=== PATIENT | female | born 1955 | race Caucasian/White ===

== ENCOUNTER 2018-04-02 08:56 | Emergency (ER) | payer OTHER ==
--- NOTE | 2018-04-02 11:18 | RAD REPORT ---
EXAM DESCRIPTION: Bishop Rueda (2 Views)04/02/2018 10:50 am CLINICAL HISTORY: Cough COMPARISON: None FINDINGS: The lungs appear clear of acute infiltrate. The heart is normal size IMPRESSION: No acute abnormalities displayed
[2018-04-02 11:55] LABS: Albumin 3.3 g/dL (3.4-5.0); Bilirubin Total 0.9 mg/dL (0.2-1.0); Potassium 4.8 mmol/L (3.5-5.1); Protein, Total 8.3 g/dL (6.4-8.2)
[2018-04-02 12:01] LABS: Absolute Lymphocytes (CBC) 1.5 K/uL (0.7-4.9); Absolute Neutrophil 11.2 K/uL (1.8-8.0); Basophils % 0.4 % (0-1.3); Hematocrit 40.6 % (36.0-45.0); Lymphocytes % 10.6 % (15.3-44.8); MCH 29.2 pg (27.0-35.0); MCV 88.5 fL (80-100); MPV 10.4 fL (7.6-11.3); Monocytes % 7.3 % (3.3-12.3); RBC Red Blood Cell Count 4.59 M/uL (3.86-4.86)
[2018-04-02] MEDS ORDERED: INSULIN -REGULAR HUMAN 50 UNIT/0.5 ML ML ONE (12:49)
[2018-04-02] MEDS ORDERED: ONDANSETRON 4 MG/2 ML VIAL ONE (13:02)
[2018-04-02 15:11] LABS: Urine Blood TRACE (NEG); Urine Glucose NEGATIVE (NEG); Urine Protein NEGATIVE (NEG); Urine Specific Gravity 1.015 (1.005-1.030)
--- NOTE | 2018-04-02 15:52 | EDPHYS ---
Physician Documentation [facility] Name: Regi Pitts Age: 62 yrs Sex: Female : 1955 Arrival Date: 04/02/2018 Time: 09:02 Bed 15 Private MD: ED Physician Artemio Lawson HPI: 04/02 10:35 This 62 yrs old Female presents to ER via Ambulatory with complaints of [facility] Cough, Congestion. 10:35 The patient or guardian reports cough. Onset: The symptoms/episode began/occurred jmm gradually, 1 week(s) ago. Associated signs and symptoms: Pertinent positives: fever, nausea. This is a 62 year old female with a history of DM, HTN, HLP that presents to the ED with sinus pain, cough for the past week. Patient also complains of nausea. Denies vomiting or abdominal pain. Historical: - Allergies: 09:15 Claritin (Rash); hb - PMHx: 09:15 Diabetes - NIDDM; Hypertension; hb - PSHx: 09:15 Femur - right; hb - Immunization history:: Adult Immunizations up to date. - Social history:: Smoking status: Patient/guardian denies using tobacco. - Ebola Screening: : No symptoms or risks identified at this time. ROS: 10:35 Eyes: Negative for injury, pain, redness, and discharge. jmm 10:35 Cardiovascular: Negative for chest pain, palpitations, and edema. 10:35 Abdomen/GI: Negative for abdominal pain, nausea, vomiting, diarrhea, and constipation. 10:35 Constitutional: Positive for body aches, fever. 10:35 ENT: Positive for sinus pain. 10:35 Respiratory: Positive for cough. 10:35 Abdomen/GI: Positive for nausea. 10:35 All other systems are negative. Exam: 10:35 Eyes: EOMI, no conjunctival erythema appreciated Neck: Trachea midline, Supple [facility] Chest/axilla: Normal chest wall appearance and motion. 10:35 Constitutional: The patient appears in no acute distress, alert, awake. 10:35 Head/face: Sinus tenderness, that is moderate. 10:35 Cardiovascular: Rate: normal, Rhythm: regular. 10:35 Respiratory: the patient does not display signs of respiratory distress, Respirations: normal, Breath sounds: are clear throughout. 10:35 Abdomen/GI: Inspection: abdomen appears normal, Bowel sounds: normal, Palpation: abdomen is soft and non-tender, in all quadrants. 10:35 Back: ROM is normal. 10:35 Musculoskeletal/extremity: ROM: intact in all extremities. 10:35 Skin: Appearance: Color: normal in color. 10:35 Neuro: Orientation: is normal, Mentation: is normal, Memory: is normal. 10:35 Psych: Behavior/mood is pleasant, cooperative. Vital Signs: 09:14 BP 139 / 69; Pulse 96; Resp 16; Temp 99; Pulse Ox 100% on R/A; Pain 0/10; hb 10:25 BP 105 / 59; Pulse 99; Resp 20; Pulse Ox 97% on R/A; aj1 11:40 BP 110 / 52; Pulse 95; Resp 18; Pulse Ox 100% on R/A; em 12:34 BP 103 / 59; Pulse 130; Resp 22; Pulse Ox 99% on R/A; aj1 13:00 BP 116 / 63; Pulse 125; Resp 20; Pulse Ox 99% on R/A; aj1 13:30 BP 112 / 45; Pulse 123; Resp 18; Pulse Ox 100% on R/A; aj1 14:30 BP 109 / 69; Pulse 117; Resp 18; Pulse Ox 96% on R/A; aj1 15:05 BP 115 / 65; Pulse 113; Resp 20; Pulse Ox 95% on R/A; aj1 15:25 BP 110 / 72; Pulse 116; Resp 20; Pulse Ox 95% on R/A; aj1 MDM: 10:25 Patient medically screened. [facility] 10:44 Differential Diagnosis: Bronchitis Influenza Upper Respiratory Infection Sinusitis [facility] Pneumonia. Data reviewed: vital signs, nurses notes. 19:19 Counseling: I had a detailed discussion with the patient and/or guardian regarding: the [facility] historical points, exam findings, and any diagnostic results supporting the discharge/admit diagnosis, lab results, radiology results, the need for outpatient follow up, to return to the emergency department if symptoms worsen or persist or if there are any questions or concerns that arise at home. ED course: The patient's HR increased after administration of duoneb. The patient denied shortness of breath or chest pain. The patient was observed in the ED with the patient stating she felt much better and is able to tolerate PO. Symptoms otherwise appear consistent with sinusitis. Patient's blood glucose lower in the ED and advised to resume home medication. Patient was advised to follow up with PCP and given strict return precautions. The patient understood and agrees with the plan of care. . 04/02 10:35 Order name: Influenza Screen (a \T\ B); Complete Time: 11:28 jmm 04/02 10:44 Order name: CBC with Diff; Complete Time: 12:04 jmm 04/02 10:44 Order name: CMP; Complete Time: 12:00 jmm 04/02 14:02 Order name: Urine Dipstick--Ancillary (enter results); Complete Time: 15:13 eb 04/02 16:10 Order name: Glucose, Ancillary Testing; Complete Time: 16:11 EDMS 04/02 16:10 Order name: Glucose, Ancillary Testing; Complete Time: 16:11 EDMS 04/02 10:35 Order name: Chest Pa And Lat (2 Views) XRAY; Complete Time: 11:23 jmm 04/02 10:35 Order name: Finger Stick; Complete Time: 10:44 jmm 04/02 10:44 Order name: Saline Lock; Complete Time: 11:08 m 04/02 13:03 Order name: Finger Stick; Complete Time: 13:23 jmm Administered Medications: 11:39 Drug: NS 0.9% 1000 ml Route: IV; Rate: 1000 ml; Site: right antecubital; em 11:39 Drug: DuoNeb (3:1) (2.5 mg - 0.5 mg) 3 ml Route: Nebulizer; em 12:59 Drug: Insulin Regular Human 5 units {Co-Signature: la1 (José Miguel Hollis RN).} Route: Sub-Q; hb Site: right upper arm; 13:00 Drug: Zofran 4 mg Route: IVP; Site: right antecubital; hb 16:00 Drug: Rocephin - (cefTRIAXone) 1 grams Route: IVPB; Infused Over: 30 mins; Site: right hb forearm; Point of Care Testing: Blood Glucose: 10:44 Blood Glucose: 404 mg/dL; aj1 11:58 Blood Glucose: 197 mg/dL; aj1 13:13 Blood Glucose: 197 mg/dL; aj1 Ranges: Critical Glucose Levels:Adult <50 mg/dl or >400 mg/dl <40 mg/dl or >180 mg/dl Disposition: 18:50 Co-signature as Attending Physician, Artemio Lawson MD. rn Disposition: 04/02/18 15:51 Discharged to Home. Impression: Acute frontal sinusitis, Acute ethmoidal sinusitis. - Condition is Stable. - Discharge Instructions: Sinusitis, Adult. - Prescriptions for cefdinir 300 mg Oral capsule - take 1 capsule by ORAL route every 12 hours for 10 days; 20 tablet. Zofran ODT 4 mg Oral tablet,disintegrating - place 1 tablet by TRANSLINGUAL route every 4-6 hours; 20 tablet. - Medication Reconciliation Form, Thank You Letter, Antibiotic Education, Prescription Opioid Use form. - Follow up: Private Physician; When: 2 - 3 days; Reason: Recheck today's complaints, Continuance of care, Re-evaluation by your physician. Signatures: Dispatcher [employer] EDHaroldo Hylton PA PA jmm Munoz, Edgar, WELL SERVICE DERRICK WORKER WELL SERVICE DERRICK WORKER Artemio Lu MD MD rn Baxter, Heather, RN RN hb Lee Attema RN la1 Corrections: (The following items were deleted from the chart) 16:13 15:51 04/02/2018 15:51 Discharged to Home. Impression: Acute frontal sinusitis; Acute hb ethmoidal sinusitis. Condition is Stable. Forms are Medication Reconciliation Form, Thank You Letter, Antibiotic Education, Prescription Opioid Use. Follow up: Private Physician; When: 2 - 3 days; Reason: Recheck today's complaints, Continuance of care, Re-evaluation by your physician. herny
--- NOTE | 2018-04-02 15:52 | ER ---
Nurse's Notes [facility] Name: Regi Pitts Age: 62 yrs Sex: Female : 1955 Arrival Date: 04/02/2018 Time: 09:02 Bed 15 Private MD: Diagnosis: Acute frontal sinusitis;Acute ethmoidal sinusitis Presentation: 04/02 09:12 Presenting complaint: Patient states: Sinus pain and pressure x 1 week, productive hb cough with yellow sputum x 2 days, N/V since last night. Unable to tolerate liquids/medications. TMAX 101. Transition of care: patient was not received from another setting of care. Onset of symptoms was March 27, 2018. Risk Assessment: Do you want to hurt yourself or someone else? Patient reports no desire to harm self or others. Care prior to arrival: None. 09:12 Method Of Arrival: Ambulatory hb 09:12 Acuity: BERNARDO 3 hb 10:35 Initial Sepsis Screen: Does the patient meet any 2 criteria? HR > 90 bpm. No. Patient's aj1 initial sepsis screen is negative. Does the patient have a suspected source of infection? Yes: Productive cough/pneumonia. Historical: - Allergies: 09:15 Claritin (Rash); hb - PMHx: 09:15 Diabetes - NIDDM; Hypertension; hb - PSHx: 09:15 Femur - right; hb - Immunization history:: Adult Immunizations up to date. - Social history:: Smoking status: Patient/guardian denies using tobacco. - Ebola Screening: : No symptoms or risks identified at this time. Screenin:25 Abuse screen: Denies threats or abuse. Denies injuries from another. Nutritional aj1 screening: No deficits noted. Tuberculosis screening: No symptoms or risk factors identified. Assessment: 10:25 General: Appears in no apparent distress. uncomfortable, Behavior is calm, cooperative. aj1 Pain: Complains of pain in chest Pain does not radiate. Pain currently is 5 out of 10 on a pain scale. Quality of pain is described as aching, Is intermittent, Alleviated by coughing. Neuro: Level of Consciousness is awake, alert, obeys commands. Cardiovascular: Reports chest pain, Heart tones S1 S2 S4 Patient's skin is warm and dry. Rhythm is regular Chest pain is described as Pain is 5 out of 10 on a pain scale. quality is aching episodes are intermittent is aggravated by coughing. Respiratory: Reports cough that is productive, hacking, persistent Airway is patent Respiratory effort is even, unlabored, Respiratory pattern is regular, symmetrical, Breath sounds are clear bilaterally. GI: Abdomen is non-distended, Bowel sounds present X 4 quads. Abd is soft and non tender X 4 quads. Reports diarrhea, nausea, vomiting. : No signs and/or symptoms were reported regarding the genitourinary system. Derm: Skin is pink, warm \T\ dry. normal. Musculoskeletal: Circulation, motion, and sensation intact. 10:45 Reassessment: Patient transported to X-Ray via wheelchair. aj1 11:39 Reassessment: Patient appears in no apparent distress at this time. No changes from em previously documented assessment. Patient and/or family updated on plan of care and expected duration. Pain level reassessed. Patient is alert, oriented x 3, equal unlabored respirations, skin warm/dry/pink. 12:34 Reassessment: Patient and/or family updated on plan of care and expected duration. Pain aj1 level reassessed. Patient c/o palpitations. Denies chest pain or shortness of breath. Heart rate is 130. Notified TERENCE Heaton. EKG obtained, will continue to monitor patient. Neuro: Level of Consciousness is awake, alert, obeys commands. Cardiovascular: Heart tones S1 S2 present Patient's skin is warm and dry. Rhythm is sinus tachycardia Chest pain is denied. Respiratory: Airway is patent Respiratory effort is even, unlabored, Respiratory pattern is regular, symmetrical, Breath sounds are clear bilaterally. Derm: Skin is pink, warm \T\ dry. normal. Musculoskeletal: Circulation, motion, and sensation intact. 12:40 Reassessment: TERENCE Heaton at bedside. aj1 13:30 Reassessment: Patient appears in no apparent distress at this time. No changes from aj1 previously documented assessment. Patient and/or family updated on plan of care and expected duration. Pain level reassessed. Patient is alert, oriented x 3, equal unlabored respirations, skin warm/dry/pink. Patient states that she is feeling better, she is no longer having palpitations. 14:30 Reassessment: Patient appears in no apparent distress at this time. No changes from aj1 previously documented assessment. Patient and/or family updated on plan of care and expected duration. Pain level reassessed. Patient is alert, oriented x 3, equal unlabored respirations, skin warm/dry/pink. 15:24 Reassessment: Patient appears in no apparent distress at this time. No changes from aj1 previously documented assessment. Patient and/or family updated on plan of care and expected duration. Pain level reassessed. Patient is alert, oriented x 3, equal unlabored respirations, skin warm/dry/pink. Vital Signs: 09:14 BP 139 / 69; Pulse 96; Resp 16; Temp 99; Pulse Ox 100% on R/A; Pain 0/10; hb 10:25 BP 105 / 59; Pulse 99; Resp 20; Pulse Ox 97% on R/A; aj1 11:40 BP 110 / 52; Pulse 95; Resp 18; Pulse Ox 100% on R/A; em 12:34 BP 103 / 59; Pulse 130; Resp 22; Pulse Ox 99% on R/A; aj1 13:00 BP 116 / 63; Pulse 125; Resp 20; Pulse Ox 99% on R/A; aj1 13:30 BP 112 / 45; Pulse 123; Resp 18; Pulse Ox 100% on R/A; aj1 14:30 BP 109 / 69; Pulse 117; Resp 18; Pulse Ox 96% on R/A; aj1 15:05 BP 115 / 65; Pulse 113; Resp 20; Pulse Ox 95% on R/A; aj1 15:25 BP 110 / 72; Pulse 116; Resp 20; Pulse Ox 95% on R/A; aj1 ED Course: 09:02 Patient arrived in ED. as 09:14 Triage completed. hb 09:15 Arm band placed on left wrist. hb 10:16 Haroldo Clay PA is PHCP. jmm 10:16 Artemio Lawson MD is Attending Physician. jmm 10:18 Ami Travis, CAROLINE is Primary Nurse. aj1 10:25 Patient has correct armband on for positive identification. Bed in low position. Call aj1 light in reach. Side rails up X 1. 10:25 No provider procedures requiring assistance completed. aj1 10:44 Notified Nurse Practitioner and/or Physician Picture Copyist of patient's blood sugar 404. aj1 10:44 Flu and/or RSV swab sent to lab. aj1 10:49 X-ray completed. Portable x-ray completed in exam room. Patient tolerated procedure sw well. 10:50 Chest Pa And Lat (2 Views) XRAY In Process Unspecified. EDMS 11:07 Initial lab(s) drawn, by me, sent to lab. Inserted saline lock: 22 gauge in right dh3 forearm, using aseptic technique. Blood collected. 12:18 CT completed. Patient moved to CT via stretcher. Patient moved back from CT. cw1 12:38 EKG done, by ED staff, reviewed by Haroldo PRATT. [facility] 16:12 IV discontinued, intact, bleeding controlled, No redness/swelling at site. Pressure hb dressing applied. Administered Medications: 11:39 Drug: NS 0.9% 1000 ml Route: IV; Rate: 1000 ml; Site: right antecubital; em 11:39 Drug: DuoNeb (3:1) (2.5 mg - 0.5 mg) 3 ml Route: Nebulizer; em 12:59 Drug: Insulin Regular Human 5 units {Co-Signature: eunice (José Miguel Hollis RN).} Route: Sub-Q; hb Site: right upper arm; 13:00 Drug: Zofran 4 mg Route: IVP; Site: right antecubital; hb 16:00 Drug: Rocephin - (cefTRIAXone) 1 grams Route: IVPB; Infused Over: 30 mins; Site: right hb forearm; Point of Care Testing: Blood Glucose: 10:44 Blood Glucose: 404 mg/dL; aj1 11:58 Blood Glucose: 197 mg/dL; aj1 13:13 Blood Glucose: 197 mg/dL; aj1 Ranges: Outcome: 15:51 Discharge ordered by . [facility] 16:11 Discharged to home ambulatory. hb 16:11 Condition: stable 16:11 Discharge instructions given to patient, Instructed on discharge instructions, follow up and referral plans. medication usage, Demonstrated understanding of instructions, follow-up care, medications, Prescriptions given X 2. 16:13 Patient left the ED. hb Signatures: Dispatcher [employer] EDMS Ami Travis RN RN aj1 Mickail, Joel, PA PA Sen Gallego, NETWORK SYSTEMS INTEGRATOR NETWORK SYSTEMS INTEGRATOR Melissa Mukherjee Crystal cw1 Elda Lamas Heather, RN RN [facility] José Miguel Attema RN la1
[2018-04-02] MEDS ORDERED: CEFTRIAXONE/SWI 1gm 1 GM/10 ML SYR ONE (15:58)
--- NOTE | 2018-04-04 07:31 | EKG ---
Test Date: 2018-04-02 Test Time: 12:34:40 Installation Drafter: JOAQUIM MEASUREMENT RESULTS: Intervals: Rate: 130 WV: 154 QRSD: 74 QT: 302 QTc: 444 [place]: P: 41 WV: 154 QRS: 33 T: 56 INTERPRETIVE STATEMENTS: Sinus tachycardia Cannot rule out Anterior infarct, age undetermined Abnormal ECG Compared to ECG 03/29/2010 17:34:21 Possible myocardial infarct finding now present Sinus rhythm no longer present Electronically Signed On 04-04-18 07:31:18 CDT by Josh Haq
== END 2018-04-02 16:13 | disposition home or self-care (01) ==
LOC: ER 08:56
DX: J01.10 Acute frontal sinusitis, unspecified (principal); J01.20 Acute ethmoidal sinusitis, unspecified
CPT/HCPCS: 36415; 71046; 80053; 81003; 82962; 85025; 87804; 93005; 94640; 96372; 99285; J0696; J2405

== ENCOUNTER 2021-02-28 07:33 | Day surgery (SDC) | payer OTHER ==
[2021-02-28] MEDS ORDERED: Zoledronic Acid/Mannitol/Water 5 MG/100 ML INFUS.BOT IV ONE (07:45)
[2021-02-28 08:14] VITALS: BP 150/61; TEMP 98.4; O2SAT 99; BMI 37.8
== END 2021-02-28 08:40 | disposition home or self-care (01) ==
LOC: DS 07:33
PROVIDERS: ATTEND Internal Medicine
DX: M81.0 Age-related osteoporosis without current pathological fracture (principal); R13.10 Dysphagia, unspecified
CPT/HCPCS: 96365; J3489

== ENCOUNTER 2022-01-20 11:48 | Emergency (ER) | payer OTHER ==
--- OUTSIDE RECORDS SUMMARY | 2022-01-20 11:51 | XMS REPORT | Continuity of Care Document ---
:1955 Author Organization [facility] t Address [address] [place] [address] Care Team Providers Name Role Phone PCP, DOES NOT HAVE A Primary Care Physician Unavailable Carol COOK Attending Clinician Unavailable Payers Payer Name Policy Type Policy Number Effective Date Expiration Date S marilyn [employer] O [id number] 2018 00:00:00 2020 00:00 :00 Problems This patient has no known problems. Allergies, Adverse Reactions, Alerts Allergy Allergy Status Severity Reaction(s) Onset Inactive Treating Comm ents Source Name Type Date Date Clinician NO KNOWN Drug [facility]ations This patient has no known medications. Procedures This patient has no known procedures. Encounters Start End Encounter Admission Attending Care Care Encounter Source Date/Time Date/Time Type Type Clinicians Facility Department ID 2019-07-10 2019-07-10 Outpatient Laura COOK [facility] [id number] [employer] 14:06:13 14:17:[address] [facility] Results This patient has no known results.
[2022-01-20 13:53] LABS: Absolute Lymphocytes (CBC) 2.2 K/uL (0.7-4.9); Hematocrit 41.9 % (36.0-45.0); Lymphocytes % 27.9 % (15.3-44.8); MCV 87.6 fL (80-100); MPV 7.4 fL (7.6-11.3); RBC Red Blood Cell Count 4.78 M/uL (3.86-4.86)
[2022-01-20] MEDS ORDERED: ONDANSETRON 4 MG/2 ML VIAL ONE (13:59)
[2022-01-20] MEDS ORDERED: NA CHLORIDE 0.9% 1,000 ML ONE (13:59)
[2022-01-20 14:09] LABS: Albumin 3.9 g/dL (3.4-5.0); Bilirubin Total 0.6 mg/dL (0.2-1.0); Potassium 4.7 mmol/L (3.5-5.1); Protein, Total 7.8 g/dL (6.4-8.2)
--- NOTE | 2022-01-20 14:35 | ER ---
Nurse's Notes [facility] Name: Regi Pitts Age: 66 yrs Sex: Female : 1955 Arrival Date: 01/20/2022 Time: 12:12 Bed DIS2 Private MD: Diagnosis: Vomiting;Diarrhea, unspecified Presentation: 01/20 12:33 Chief complaint: Body aches, headache, and N/V x 4 days, diarrhea today. Denies fever. hb Tolerating occasional small sips of water, not tolerating food/medication. Coronavirus screen: Client presents with at least one sign or symptom that may indicate coronavirus-19. Standard/surgical mask placed on the client. Provider contacted for isolation considerations. Ebola Screen: No symptoms or risks identified at this time. 12:33 Method Of Arrival: Ambulatory hb 12:36 Initial Sepsis Screen: Does the patient meet any 2 criteria? No. Patient's initial hb sepsis screen is negative. Does the patient have a suspected source of infection? No. Patient's initial sepsis screen is negative. Risk Assessment: Do you want to hurt yourself or someone else? Patient reports no desire to harm self or others. Onset of symptoms was January 16, 2022. 12:36 Acuity: BERNARDO 3 hb Historical: - Allergies: 12:36 Claritin (rash); hb - Home Meds: 12:36 gabapentin oral [Active]; metoprolol succinate oral [Active]; Lisinopril Oral [Active]; hb atorvastatin oral [Active]; fenoprofen oral [Active]; pantoprazole oral [Active]; Basaglar KwikPen U-100 Insulin 100 unit/mL (3 mL) subcutaneous inpn [Active]; - PMHx: 12:36 Diabetes - NIDDM; Hypertension; hb - PSHx: 12:36 Bariatric; hb - Immunization history:: Client reports receiving the 2nd dose of the Covid vaccine. - Social history:: Smoking status: Patient denies any tobacco usage or history of. Vital Signs: 12:33 BP 131 / 75; Pulse 73; Resp 16; Temp 98.5(TE); Pulse Ox 100% on R/A; Weight 104.33 kg; hb Height 5 ft. 3 in. (160.02 cm); Pain 5/10; 12:33 Body Mass Index 40.74 (104.33 kg, 160.02 cm) hb ED Course: 12:12 Patient arrived in ED. mr 12:36 Triage completed. hb 12:36 Arm band placed on. hb 13:27 COVID-19 SARS RT PCR (Document "Date of Onset" if Symptomatic) Sent. kj1 13:27 Flu Sent. kj1 13:29 Shaka Thurman NP is PHCP. pm1 13:29 Kal Cortez MD is Attending Physician. pm1 13:46 Italo Garcia, RN is Primary Nurse. jl7 Administered Medications: 14:01 Drug: NS 0.9% 1000 ml Route: IV; Rate: 1 bolus; Site: left antecubital; jl7 14:01 Drug: Zofran (Ondansetron) 4 mg Route: IVP; Site: left antecubital; jl7 Outcome: 14:34 Discharge ordered by . pm1 15:16 Patient left the ED. hb Signatures: Amanda Ramos mr Shaka Thurman, MARGOT KIER OPERATOR pm1 Rossana Sorenson RN RN Italo Garcia, CAROLINE RN jl7 Raquel Guo kj1
--- NOTE | 2022-01-20 14:35 | EDPHYS ---
[facility] Age: 66 yrs Sex: Female : 1955
[2022-01-20 14:51] LABS: Urine Blood Trace-lysed (Negative); Urine Glucose Negative (Negative); Urine Protein Negative (Negative); Urine pH 5.5 (5.0-7.0)
[2022-01-20 15:44] VITALS: BP 131/75; TEMP 98.5; O2SAT 100
== END 2022-01-20 15:16 | disposition home or self-care (01) ==
LOC: ER 11:48
DX: R11.2 Nausea with vomiting, unspecified (principal); R19.7 Diarrhea, unspecified; Z20.822 Contact with and (suspected) exposure to COVID-19; E11.9 Type 2 diabetes mellitus without complications; I10 Essential (primary) hypertension; Z79.4 Long term (current) use of insulin; Z88.8 Allergy status to other drugs, medicaments and biological substances
CPT/HCPCS: 85025; 36415; 82947; 81003; 83690; 80053; 87804 ×2; 96374; 99283; U0003; J7030; J2405

== ENCOUNTER 2022-05-10 10:31 | Emergency (ER) | payer OTHER ==
--- OUTSIDE RECORDS SUMMARY | 2022-05-10 10:33 | XMS REPORT | Continuity of Care Document ---
:1955 Author Organization [facility] t Address [address] [place] [address] Care Team Providers Name Role Phone PCP, PATIENT DOES NOT HAVE A Primary Care Physician Unavaila VIDYA Kimball Attending Clinician Unavailable Payers Payer Name Policy Type Policy Number Effective Date Expiration Date S marilyn SAENZTNA O [id number] 2018 00:00:00 2020 00:00 :00 Problems This patient has no known problems. Allergies, Adverse Reactions, Alerts Allergy Allergy Status Severity Reaction(s) Onset Inactive Treating Comm ents Source Name Type Date Date Clinician NO KNOWN Drug Active [facility] ALLERGIE Class [facility] Medications This patient has no known medications. Procedures This patient has no known procedures. Encounters Start End Encounter Admission Attending Care Care Encounter Source Date/Time Date/Time Type Type Clinicians Facility Department ID 2019-07-10 2019-07-10 Outpatient Laura COOK [facility] [id number] [place] 14:06:13 14:17:00 VIDYA compa [facility] Results This patient has no known results.
[2022-05-10 11:53] LABS: SARS-COV-2 RT PCR NEGATIVE (NEGATIVE)
[2022-05-10 12:23] LABS: Urine Blood Trace-intact (Negative); Urine Glucose Negative (Negative); Urine Protein 1+ (Negative); Urine pH 5.5 (5.0-7.0)
--- NOTE | 2022-05-10 12:32 | RAD REPORT ---
EXAM DESCRIPTION: RAD - Chest Single View - 05/10/2022 12:16 pm CLINICAL HISTORY: COUGH COMPARISON: Chest Pa And Lat (2 Views) dated 04/02/2018 FINDINGS: Lines: None. Lungs: No evidence of edema or pneumonia. Pleural: No significant pleural effusions or pneumothorax. Cardiac: The heart size is within normal limits. Mediastinum: Within normal limits. Bones: No acute fractures. Other: None IMPRESSION: No acute cardiopulmonary disease.
[2022-05-10 12:37] LABS: Absolute Lymphocytes (CBC) 1.6 K/uL (0.7-4.9); Hematocrit 35.2 % (36.0-45.0); MCV 87.7 fL (80-100); MPV 7.8 fL (7.6-11.3); RBC Red Blood Cell Count 4.01 M/uL (3.86-4.86)
[2022-05-10 12:57] LABS: Albumin 2.7 g/dL (3.4-5.0); Bilirubin Total 0.5 mg/dL (0.2-1.0); Potassium 4.7 mmol/L (3.5-5.1); Protein, Total 7.6 g/dL (6.4-8.2); Troponin High Sensitivity 6.6 pg/mL (<58.9)
--- NOTE | 2022-05-10 13:20 | EDPHYS ---
Physician Documentation [facility] Name: Regi Pitts Age: 66 yrs Sex: Female : 1955 Arrival Date: 05/10/2022 Time: 10:33 Bed 20 Private MD: Wagner Justin V ED Physician Kal Cortez HPI: 05/10 13:16 This 66 yrs old Female presents to ER via Ambulatory with complaints of jl9 Cough, Decreased Appetite, and malaise. . 13:16 The patient or guardian reports cough. Onset: The symptoms/episode began/occurred jl9 yesterday. Modifying factors: The symptoms are alleviated by nothing, the symptoms are aggravated by nothing. Associated signs and symptoms: Pertinent positives:. Historical: - Allergies: 10:59 Claritin (rash); vg1 - Home Meds: 10:59 pantoprazole Oral [Active]; metoprolol succinate Oral [Active]; lisinopril Oral vg1 [Active]; gabapentin Oral [Active]; atorvastatin Oral [Active]; Basaglar KwikPen U-100 Insulin 100 unit/mL (3 mL) subcutaneous inpn [Active]; fenofibrate oral [Active]; Insulin: Regular Sub-Q [Active]; - PMHx: 10:59 Diabetes - NIDDM; Hypertension; vg1 - Immunization history:: Client reports receiving the 2nd dose of the Covid vaccine. - Social history:: Smoking status: Patient denies any tobacco usage or history of. ROS: 13:17 Constitutional: Negative for fever, chills, and weight loss, Eyes: Negative for injury, jl9 pain, redness, and discharge, ENT: Negative for injury, pain, and discharge, Neck: Negative for injury, pain, and swelling, Cardiovascular: Negative for chest pain, palpitations, and edema. 13:17 Abdomen/GI: Negative for abdominal pain, nausea, vomiting, diarrhea, and constipation, Back: Negative for injury and pain, : Negative for injury, bleeding, discharge, and swelling, MS/Extremity: Negative for injury and deformity, Skin: Negative for injury, rash, and discoloration. 13:17 Psych: Negative for depression, anxiety, suicide ideation, homicidal ideation, and hallucinations, Allergy/Immunology: Negative for hives, rash, and allergies, Endocrine: Negative for neck swelling, polydipsia, polyuria, polyphagia, and marked weight changes, Hematologic/Lymphatic: Negative for swollen nodes, abnormal bleeding, and unusual bruising. 13:17 Respiratory: Positive for cough. 13:17 Neuro: Positive for weakness. Exam: 13:17 Constitutional: This is a well developed, well nourished patient who is awake, alert, jl9 and in no acute distress. Head/Face: Normocephalic, atraumatic. Eyes: Pupils equal round and reactive to light, extra-ocular motions intact. Lids and lashes normal. Conjunctiva and sclera are non-icteric and not injected. Cornea within normal limits. Periorbital areas with no swelling, redness, or edema. ENT: Mucous membranes moist. Neck: Trachea midline, no thyromegaly or masses palpated, and no cervical lymphadenopathy. Supple, full range of motion without nuchal rigidity, or vertebral point tenderness. No Meningismus. Chest/axilla: Normal chest wall appearance and motion. Nontender with no deformity. No lesions are appreciated. Cardiovascular: Regular rate and rhythm with a normal S1 and S2. No gallops, murmurs, or rubs. Normal PMI, no JVD. No pulse deficits. Respiratory: Lungs have equal breath sounds bilaterally, clear to auscultation and percussion. No rales, rhonchi or wheezes noted. No increased work of breathing, no retractions or nasal flaring. Abdomen/GI: Soft, non-tender, with normal bowel sounds. No distension or tympany. No guarding or rebound. No evidence of tenderness throughout. Back: No spinal tenderness. No costovertebral tenderness. Full range of motion. Skin: Warm, dry with normal turgor. Normal color with no rashes, no lesions, and no evidence of cellulitis. MS/ Extremity: Pulses equal, no cyanosis. Neurovascular intact. Full, normal range of motion. Neuro: Awake and alert, GCS 15, oriented to person, place, time, and situation. Cranial nerves II-XII grossly intact. Motor strength 5/5 in all extremities. Sensory grossly intact. Cerebellar exam normal. Normal gait. Psych: Awake, alert, with orientation to person, place and time. Behavior, mood, and affect are within normal limits. Vital Signs: 10:56 BP 129 / 69; Pulse 80; Resp 17; Temp 98.1(O); Pulse Ox 100% on R/A; Weight 103.42 kg; vg1 Height 5 ft. 3 in. (160.02 cm); Pain 7/10; 13:00 BP 101 / 53; Pulse 79; Resp 16; Pulse Ox 98% ; bp 14:04 BP 117 / 55; Pulse 85; Resp 16; Pulse Ox 98% on R/A; tp1 10:56 Body Mass Index 40.39 (103.42 kg, 160.02 cm) vg1 MDM: 11:02 Patient medically screened. jl9 13:17 Differential Diagnosis: Obstructed Airway Upper Respiratory Infection Sinusitis. Data jl9 reviewed: vital signs, nurses notes. Counseling: I had a detailed discussion with the patient and/or guardian regarding: the historical points, exam findings, and any diagnostic results supporting the discharge/admit diagnosis, lab results, radiology results, the need for outpatient follow up, to return to the emergency department if symptoms worsen or persist or if there are any questions or concerns that arise at home. 05/10 11:04 Order name: COVID-19/FLU A+B/RSV (Document "Date of Onset" if Symptomatic); Complete jl9 Time: 12:13 05/10 11:05 Order name: CBC with Diff; Complete Time: 13:14 9 05/10 11:05 Order name: CMP; Complete Time: 13:14 9 05/10 11:05 Order name: Troponin High Sensitivity; Complete Time: 13:14 9 05/10 12:13 Order name: Strep; Complete Time: 13:14 9 05/10 12:23 Order name: Urine Dipstick-Ancillary; Complete Time: 12:27 EDMS 05/10 11:05 Order name: XRAY Chest (1 view); Complete Time: 12:34 9 05/10 11:05 Order name: EKG; Complete Time: 11:05 9 05/10 11:05 Order name: Saline Lock; Complete Time: 12:18 9 05/10 11:05 Order name: Urine Dipstick-Ancillary (obtain specimen); Complete Time: 12:29 9 05/10 12:58 Order name: Throat Culture EDMS Administered Medications: No medications were administered Disposition Summary: 05/10/22 13:19 Discharge Ordered Location: Home jl9 Condition: Stable jl9 Diagnosis - UTI/ Urinary tract infection, site not specified jl9 Followup: jl9 - With: Private Physician - When: 1 - 2 days - Reason: Recheck today's complaints, Continuance of care, Re-evaluation by your physician Discharge Instructions: - Discharge Summary Sheet jl9 - Urinary Tract Infection, Adult, [id number] jl9 - Weakness, [id number] jl9 Forms: - Medication Reconciliation Form jl9 - Thank You Letter jl9 - Antibiotic Education jl9 - Prescription Opioid Use jl9 Prescriptions: - cefpodoxime 200 mg Oral Tablet - take 2 tablets by ORAL route every 12 hours with food; 14 tablet; Refills: 0, jl9 Product Selection Permitted Addendum: 05/14/2022 09:43 Co-signature as Attending Physician, Kal Cortez MD I agree with the assessment and c elmore plan of care. Signatures: Dispatcher [employer] Kal Lundberg MD MD cha Garcia, Victoria, RN RN vg1 David Castillo jl9
--- NOTE | 2022-05-10 13:20 | ER ---
Nurse's Notes [facility] Name: Regi Pitts Age: 66 yrs Sex: Female : 1955 Arrival Date: 05/10/2022 Time: 10:33 Bed 20 Private MD: Wagner Justin V Diagnosis: UTI/ Urinary tract infection, site not specified Presentation: 05/10 10:56 Chief complaint: Patient states: Saw Dr Justin on 04/30/22 for cough/congestion and was vg1 rx Oseltamivir but was not tested for flu. Stated NVD x 2 days, ABD pain with body aches. Coronavirus screen: Vaccine status: Patient reports receiving the 2nd dose of the covid vaccine. Client denies travel out of the [place] in the last 14 days. Ebola Screen: Patient negative for fever greater than or equal to 101.5 degrees Fahrenheit, and additional compatible Ebola Virus Disease symptoms. Initial Sepsis Screen: Does the patient meet any 2 criteria? No. Patient's initial sepsis screen is negative. Does the patient have a suspected source of infection? No. Patient's initial sepsis screen is negative. Risk Assessment: Do you want to hurt yourself or someone else? Patient reports no desire to harm self or others. Onset of symptoms was May 08, 2022. 10:56 Method Of Arrival: Ambulatory vg1 10:56 Acuity: BERNARDO 3 vg1 Triage Assessment: 10:59 General: Appears in no apparent distress. uncomfortable, ill, Behavior is cooperative. vg1 Pain: Complains of pain in epigastric area Pain currently is 7 out of 10 on a pain scale. Respiratory: Reports cough that is Airway is patent Respiratory effort is even, unlabored. GI: Reports diarrhea, normal bowel habits, vomiting. Historical: - Allergies: 10:59 Claritin (rash); vg1 - Home Meds: 10:59 pantoprazole Oral [Active]; metoprolol succinate Oral [Active]; lisinopril Oral vg1 [Active]; gabapentin Oral [Active]; atorvastatin Oral [Active]; Basaglar KwikPen U-100 Insulin 100 unit/mL (3 mL) subcutaneous inpn [Active]; fenofibrate oral [Active]; Insulin: Regular Sub-Q [Active]; - PMHx: 10:59 Diabetes - NIDDM; Hypertension; vg1 - Immunization history:: Client reports receiving the 2nd dose of the Covid vaccine. - Social history:: Smoking status: Patient denies any tobacco usage or history of. Screenin:19 Abuse screen: Denies threats or abuse. Denies injuries from another. Nutritional bp screening: No deficits noted. Tuberculosis screening: No symptoms or risk factors identified. Fall Risk None identified. Assessment: 11:00 General: SEE TRIAGE NOTE. bp 13:00 Reassessment: No changes from previously documented assessment. Patient and/or family bp updated on plan of care and expected duration. Pain level reassessed. 14:04 General: Appears in no apparent distress. comfortable. Neuro: Level of Consciousness is tp1 awake, alert, obeys commands. Respiratory: Airway is patent Respiratory effort is even, unlabored. Musculoskeletal: Circulation, motion, and sensation intact. Vital Signs: 10:56 BP 129 / 69; Pulse 80; Resp 17; Temp 98.1(O); Pulse Ox 100% on R/A; Weight 103.42 kg; vg1 Height 5 ft. 3 in. (160.02 cm); Pain 7/10; 13:00 BP 101 / 53; Pulse 79; Resp 16; Pulse Ox 98% ; bp 14:04 BP 117 / 55; Pulse 85; Resp 16; Pulse Ox 98% on R/A; tp1 10:56 Body Mass Index 40.39 (103.42 kg, 160.02 cm) vg1 ED Course: 10:33 Patient arrived in ED. am2 10:33 Wagner Justin MD is Private Physician. am2 10:59 Triage completed. vg1 10:59 Arm band placed on. vg1 11:02 David Castillo is PHCP. jl9 11:02 Kal Cortez MD is Attending Physician. jl9 11:04 Rodrigo Mayberry, CAROLINE is Primary Nurse. bp 12:18 XRAY Chest (1 view) In Process Unspecified. EDMS 14:03 IV discontinued, intact, bleeding controlled, No redness/swelling at site. Pressure tp1 dressing applied. 14:03 Inserted saline lock: 22 gauge in right antecubital area, using aseptic technique. tp1 ,using aseptic technique. inserted by Rdorigo VELAZQUEZ. 14:03 No provider procedures requiring assistance completed. tp1 14:19 Patient has correct armband on for positive identification. Bed in low position. Call bp light in reach. Side rails up X2. Administered Medications: No medications were administered Medication: 14:04 VIS not applicable for this client. tp1 Outcome: 13:19 Discharge ordered by . ethan 14:03 Discharged to home ambulatory. tp1 14:03 Condition: good 14:03 Discharge instructions given to patient, Instructed on discharge instructions, follow up and referral plans. medication usage, Demonstrated understanding of instructions, follow-up care, medications, Prescriptions given X 1. 14:05 Patient left the ED. tp1 Signatures: Dispatcher [employer] EDMS Vivi Goldsmith Brian, RN RN Dahlia Houston RN RN vg1 Rosa Barreto RN RN tp1 David Castillo
[2022-05-10 14:24] VITALS: TEMP 98.1
[2022-05-10 14:30] VITALS: BP 117/55; O2SAT 98
--- NOTE | 2022-05-11 15:09 | EKG ---
Test Date: 2022-05-10 Test Time: 12:10:06 Seo Expert: BP MEASUREMENT RESULTS: Intervals: Rate: 82 NH: 152 QRSD: 74 QT: 378 QTc: 441 [place]: P: 34 NH: 152 QRS: 30 T: 47 INTERPRETIVE STATEMENTS: Normal sinus rhythm Nonspecific ST abnormality Abnormal ECG Compared to ECG 04/02/2018 12:34:40 ST (T wave) deviation now present Sinus tachycardia no longer present Myocardial infarct finding no longer present Electronically Signed On 05-11-22 15:07:42 SALES PLANNING ANALYST by Andrew Phillips
== END 2022-05-10 14:05 | disposition home or self-care (01) ==
LOC: ER 10:31
DX: N39.0 Urinary tract infection, site not specified (principal); R05.9 Cough, unspecified; I10 Essential (primary) hypertension; E11.9 Type 2 diabetes mellitus without complications; Z20.822 Contact with and (suspected) exposure to COVID-19; Z79.4 Long term (current) use of insulin; Z88.8 Allergy status to other drugs, medicaments and biological substances
CPT/HCPCS: 93005; 87070; 85025; 36415; 87081; 81003; 84484; 80053; 0241U; 71045; 99283

== ENCOUNTER 2023-04-07 11:30 | Day surgery (SDC) | payer OTHER ==
[2023-04-07] MEDS ORDERED: Zoledronic Acid/Mannitol/Water 5 MG/100 ML INFUS.BOT IV ONE (12:00)
[2023-04-07 13:00] VITALS: BP 134/54; TEMP 97.8; O2SAT 97; BMI 43.9
== END 2023-04-07 12:37 | disposition home or self-care (01) ==
LOC: DS 11:30
PROVIDERS: ATTEND Family Medicine
DX: M81.0 Age-related osteoporosis without current pathological fracture (principal); R13.10 Dysphagia, unspecified
CPT/HCPCS: 96365; J3489